=== PATIENT | male | born 1995 | race Caucasian/White ===

== ENCOUNTER 2020-10-24 08:18 | Emergency (ER) | payer OTHER ==
[~2020-10-24] VITALS: Ht 170.2 cm; Wt 70.8 kg
[2020-10-24] MEDS ORDERED: PERCOCET 5-3251 EACH PO (11:09)
== END 2020-10-24 11:42 | disposition home or self-care (01) ==
LOC: ER 08:18
DX: S93.491A Sprain of other ligament of right ankle, initial encounter (principal); X50.0XXA Overexertion from strenuous movement or load, initial encounter; Y93.89 Activity, other specified; Y92.832 Beach as the place of occurrence of the external cause; Y99.8 Other external cause status

== ENCOUNTER 2020-11-26 02:13 | Emergency (ER) | payer OTHER ==
[~2020-11-26] VITALS: Ht 165.1 cm; Wt 81.6 kg
[~2020-11-26 02:13] MED LIST: PERCOCET 5-3251 EACH PO
== END 2020-11-26 06:31 | disposition home or self-care (01) ==
LOC: ER 02:13
DX: R06.02 Shortness of breath (principal); F12.129 Cannabis abuse with intoxication, unspecified

== ENCOUNTER 2020-12-13 08:54 | Outpatient (CLI) | payer OTHER | END 2020-12-13 09:13 | disposition home or self-care (01) | LOC: RAD 08:54 | PROVIDERS: ATTEND Orthopaedic Surgery | DX: S82.51XD Displaced fracture of medial malleolus of right tibia, subsequent encounter for closed fracture with routine healing (principal); S82.61XD Displaced fracture of lateral malleolus of right fibula, subsequent encounter for closed fracture with routine healing ==

== ENCOUNTER → 2021-01-22 | Emergency (ER) | payer OTHER | END | disposition left against medical advice (07) | LOC: ER 22:54 | DX: Z53.21 Procedure and treatment not carried out due to patient leaving prior to being seen by health care provider (principal) ==

== ENCOUNTER 2024-06-29 09:46 | Emergency (ER) | payer OTHER ==
[~2024-06-29] VITALS: Ht 165.1 cm; Wt 80.7 kg
[2024-06-29] MEDS ORDERED: TRAMADOL HCL 50 MG TABLET PO STA (10:36)
== END 2024-06-29 12:48 | disposition home or self-care (01) ==
LOC: ER 09:48
DX: M79.641 Pain in right hand (principal); Z91.013 Allergy to seafood